=== PATIENT | male | born 1960 | race Caucasian/White ===

== ENCOUNTER 2016-09-28 13:07 | Observation (INO) | END 2016-09-29 16:16 | disposition home or self-care (01) | DX: K40.31 Unilateral inguinal hernia, with obstruction, without gangrene, recurrent (principal); D17.6 Benign lipomatous neoplasm of spermatic cord; K21.9 Gastro-esophageal reflux disease without esophagitis; F17.210 Nicotine dependence, cigarettes, uncomplicated; Z88.0 Allergy status to penicillin; E66.9 Obesity, unspecified; Z68.31 Body mass index [BMI] 31.0-31.9, adult | CPT/HCPCS: 49521; 71010; 80048; 85025; 85610; 85730; 88304; 93005; 96361; 96374; 96375; C1781; J0330; J1170; J2175; J2250; J2270; J2405; J2710; J2765; J2795; J3370; J3480; J7030; Z7500; Z7512; Z7610 ==

== ENCOUNTER 2017-06-04 08:09 | Day surgery (SDC) | payer BC ==
[~2017-06-04] VITALS: Ht 193 cm; Wt 112.8 kg
[~2017-06-04 08:09] MED LIST: Oxycodone/Acetamin (5/325) PO
[2017-06-04 09:35] VITALS: Ht 193 cm; Wt 112.8 kg
[2017-06-04] MEDS ORDERED: NO MEDS (09:43)
[2017-06-04] MEDS ORDERED: FENTAnyl 50 MCG/ML VIAL ONE (09:47)
[2017-06-04] MEDS ORDERED: PROPOFOL 20 ML ONE (09:47)
[2017-06-04] MEDS ORDERED: ONDANSETRON 4 MG INJ ONE (09:47)
[2017-06-04 10:02] VITALS: BP 142/91; PULSE 97; RESP 18
--- NOTE | 2017-06-04 10:36 | OPPN ---
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
--- NOTE | 2017-06-04 11:54 | GILP ---
DATE OF PROCEDURE: NAME OF PROCEDURES: 1. Esophagogastroduodenoscopy and biopsy. 2. Colonoscopy and biopsy. SURGEON: Dave Watson MD PREOPERATIVE DIAGNOSES: 1. Gastroesophageal reflux disease. 2. Screening colonoscopy. POSTOPERATIVE DIAGNOSES: 1. Gastroesophageal reflux disease. 2. Gastritis with erosions. 3. Gastric mucosal biopsies were taken for Helicobacter pylori test. 4. Duodenal bulb ulcer. 5. Colonoscopy all the way to the cecum. 6. Four small colon polyps were removed using the biopsy forceps. 7. Diverticulosis of the colon. 8. Internal hemorrhoids. INDICATION FOR THE PROCEDURE: Mr. Kristopher Luevano is a 56-year-old male patient who had chronic he artburn, not responding to therapy. He also needed screening colonoscopy. The procedures and possible complications were well explained to the patient. The patient understoo d and consented to the procedure. DESCRIPTION OF PROCEDURE: Under the influence of anesthesia, the gastroscope was carefully introduc ed into the esophagus and under direct vision it was advanced to the stomach and through the pylorus into the duodenal bulb and descending duodenum. FINDINGS: ESOPHAGUS: The patient had gastroesophageal reflux disease. STOMACH: He had gastritis with erosions. Gastric mucosal biopsies were taken for H. pylori test. DUODENUM: The patient had duodenal bulb ulcer. The colonoscope was carefully introduced in the rectum and under direct vision it was advanced all t he way to the cecum. FINDINGS: The patient had 4 small colon polyps and they were removed using biopsy forceps. He had internal hemorrhoids. He tolerated the procedures very well and there was no complication from the procedures. At the end of the procedures, he was awake with stable vital signs and he was discharged home to the care of h is family. He was also noted to have diverticulosis of the colon. IMPRESSION: Please see postoperative diagnosis. PLAN: 1. Nexium 24 hours p.o. q.a.m. 2. Await Helicobacter pylori test report. 3. Next screening colonoscopy in 5 years. Dictated By: DAVE ROSS/ERVIN Conf#: [id number] DID#: [id number]
== END 2017-06-04 16:51 | disposition home or self-care (01) ==
LOC: GIL 08:09
PROVIDERS: ATTEND Internal Medicine Gastroenterology
DX: Z12.11 Encounter for screening for malignant neoplasm of colon (principal); K63.5 Polyp of colon; B96.81 Helicobacter pylori [H. pylori] as the cause of diseases classified elsewhere; K21.9 Gastro-esophageal reflux disease without esophagitis; K29.60 Other gastritis without bleeding; K26.9 Duodenal ulcer, unspecified as acute or chronic, without hemorrhage or perforation; K57.90 Diverticulosis of intestine, part unspecified, without perforation or abscess without bleeding; K64.4 Residual hemorrhoidal skin tags
CPT/HCPCS: 43239; 45380; 87081; 88305; J2405; J3010; Z7610